=== PATIENT | male | born 1955 | race Caucasian/White ===

== ENCOUNTER 2023-08-23 10:14 | Observation (INO) | payer OTHER, MEDICARE ==
[2023-08-23 11:09] LABS: Absolute Lymphocytes (CBC) 1.2 K/uL (0.7-4.9); Hematocrit 42.5 % (39.6-49.0); Lymphocytes % 7.2 % (15.3-44.8); MCV 95.5 fL (80-100); MPV 7.5 fL (7.6-11.3); Platelets 179 thou/uL (152-406); RBC Red Blood Cell Count 4.45 M/uL (4.33-5.43)
[2023-08-23 11:25] LABS: SARS-CoV-2 Antigen Rapid Res Negative (Negative)
[2023-08-23 11:37] LABS: Potassium 4.1 mEq/L (3.5-5.1)
--- NOTE | 2023-08-23 12:09 | RAD REPORT ---
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 FINDINGS: Nasopharyngeal tissues are normal in appearance. Fossa Rosenmller are normal. 5.9 cm x 2.3 x 1.2 cm (CC x TV x AP) left peritonsillar abscess identified which extends inferiorly t o the C4 level via the left parapharyngeal space. There is shift of the airway from left to right. Th e epiglottis is thickened. Prevertebral edema is present. Tongue base structures are normal. Piriform sinuses are well aerated. The vocal cords are normal in appearance. Asymmetric enlargement of the left submandibular gland which could be due to edema. Upper lung miller are clear. Included intracranial contents are unremarkable. Carotid artery calcifications. IMPRESSION: Left-sided peritonsillar abscess which extends into the upper neck to about the level of C4. Mild prevertebral edema and edema/enlargement of the epiglottis. Mass effect is present on the a irway. Recommend ENT consultation .
[2023-08-23] MEDS ORDERED: NA CHLORIDE 0.9% 1,000 ML ONE (12:35)
[2023-08-23] MEDS ORDERED: PIPERACIL/TAZO 3.375 GM VIAL IV ONE (12:35)
[2023-08-23] MEDS ORDERED: NA CHLORIDE 0.9% 100 ML ONE (12:35)
[2023-08-23] MEDS ORDERED: dexAMETHasone 10 MG/ML VIAL ONE (12:48)
--- NOTE | 2023-08-23 12:53 | ER ---
Nurse's Notes [facility] Name: Delta Meredith Age: 67 yrs Sex: Male : 1955 Arrival Date: 08/23/2023 Time: 10:14 Bed 18 Private MD: Diagnosis: Peritonsillar abscess;Acute epiglottitis without obstruction Presentation: 08/23 10:29 Chief complaint: Patient states: Pt states "I started with a sore throat about 2 week aa5 ago and about 3 days ago it came back worse", pt states "my throat is swollen". 10:29 Method Of Arrival: Ambulatory aa5 10:29 Coronavirus screen: At this time, the client does not indicate any symptoms associated aa5 with coronavirus-19. Ebola Screen: Patient denies travel to an Ebola-affected area in the 21 days before illness onset. Initial Sepsis Screen: Does the patient meet any 2 criteria? HR > 90 bpm. Does the patient have a suspected source of infection? No. Patient's initial sepsis screen is negative. Risk Assessment: Do you want to hurt yourself or someone else? Patient reports no desire to harm self or others. Onset of symptoms was August 2023. 10:29 Acuity: LORETTA 3 aa5 Historical: - Allergies: 10:34 No Known Allergies; aa5 - Home Meds: 10:34 None [Active]; aa5 - PMHx: 10:34 None; aa5 - PSHx: 10:34 None; aa5 - Immunization history:: Adult Immunizations unknown. - Social history:: Smoking status: Patient denies any tobacco usage or history of. - Family history:: not pertinent. - Hospitalizations: : No recent hospitalization is reported. Screenin:30 [facility] ED Fall Risk Assessment (Adult) History of falling in the last 3 months, mb9 including since admission No falls in past 3 months (0 pts) Confusion or Disorientation No (0 pts) Intoxicated or Sedated No (0 pts) Impaired Gait No (0 pts) Mobility Assist Device Used No (0 pt) Altered Elimination No (0 pt) Score/Fall Risk Level 0 - 2 = Low Risk Oriented to surroundings, Maintained a safe environment, Educated pt \\T\\ family on fall prevention, incl call for assistance when getting out of bed. Abuse screen: Denies threats or abuse. Nutritional screening: No deficits noted. Tuberculosis screening: No symptoms or risk factors identified. Assessment: 11:10 General: Appears in no apparent distress. Behavior is calm. Pain: Complains of pain in mb9 neck. Neuro: Godoy Agitation-Sedation Scale (RASS): 0 - Alert and Calm Level of Consciousness is awake, alert, obeys commands, Oriented to person, place, time, situation, Appropriate for age. Cardiovascular: Patient's skin is warm and dry. Respiratory: Airway is patent Respiratory effort is even, unlabored, Respiratory pattern is regular, symmetrical, Breath sounds are clear bilaterally. GI: No signs and/or symptoms were reported involving the gastrointestinal system. : No signs and/or symptoms were reported regarding the genitourinary system. EENT: Throat is reddened. Derm: Skin is pink, warm \\T\\ dry. Musculoskeletal: Range of motion: intact in all extremities. 12:35 Reassessment: No changes from previously documented assessment. Patient and/or family mb9 updated on plan of care and expected duration. Pain level reassessed. Patient is alert, oriented x 3, equal unlabored respirations, skin warm/dry/pink. 14:00 Reassessment: No changes from previously documented assessment. Patient and/or family mb9 updated on plan of care and expected duration. Pain level reassessed. Patient is alert, oriented x 3, equal unlabored respirations, skin warm/dry/pink. 14:24 Reassessment: see [facility] for further charting. mb9 Vital Signs: 10:29 BP 124 / 88; Pulse 103; Resp 18 S; Temp 98.8(O); Pulse Ox 99% on R/A; Weight 100.7 kg aa5 (R); Height 6 ft. 1 in. (R); 12:46 BP 121 / 75; Pulse 95; Resp 16; Pulse Ox 100% ; mb9 14:00 BP 124 / 74; Pulse 90; Resp 16; Pulse Ox 97% on R/A; mb9 10:29 Body Mass Index 29.29 (100.70 kg, 185.42 cm) aa5 ED Course: 10:17 Patient arrived in ED. mg5 10:21 Macarena Coles, MADELAINE is Primary Nurse. lg3 10:21 Alonso Renteria MD is Attending Physician. rn 10:29 Arm band placed on. aa5 10:30 Triage completed. aa5 11:01 Primary Nurse role handed off by Macarena Coles RN mb9 11:01 Emelia Byrne, RN is Primary Nurse. mb9 11:01 Basic Metabolic Panel Sent. mb9 11:01 CBC with Diff Sent. mb9 11:01 Flu Sent. mb9 11:01 SARS RAPID Sent. mb9 11:01 Strep Sent. mb9 11:01 Inserted saline lock: 20 gauge in right antecubital area, using aseptic technique. mb9 Blood collected. 11:30 Placed in gown. Bed in low position. Call light in reach. Side rails up X 1. Client mb9 placed on continuous cardiac and pulse oximetry monitoring. NIBP monitoring applied. 11:55 CT Soft Tissue Neck W/contr In Process Unspecified. EDMS 12:46 Inserted saline lock: 20 gauge in right hand, using aseptic technique. mb9 12:46 No provider procedures requiring assistance completed. mb9 12:51 Delta Wade is Hospitalizing Provider. rn 14:25 Patient admitted, IV remains in place. mb9 Administered Medications: 12:45 Drug: Piperacillin-Tazobactam IVPB 3.375 grams IVPB once over 60 mins; (mix in NS 100 mb9 mL) Route: IVPB; Infused Over: 60 mins; Site: right hand; 14:25 Follow up: Response: No adverse reaction; IV Status: Completed infusion mb9 12:52 Drug: Decadron - Dexamethasone IVP 10 mg IVP once Route: IVP; Site: right antecubital; mb9 14:25 Follow up: Response: No adverse reaction mb9 Medication: 11:30 VIS not applicable for this client. mb9 Outcome: 12:52 Decision to Hospitalize by Provider. rn 15:31 Admitted to Med/surg accompanied by debbei, via wheelchair, room 231, with chart, Report mb9 called to MADELAINE Belle 15:31 Condition: stable 15:36 Patient left the ED. mb9 Signatures: Dispatcher [employer] EDMS Alonso Renteria MD MD rn Calderon, Audri, RN RN aa5 Macarena Coles RN RN lg3 Emelia Byrne, RN RN mb9 Marycruz Dunn mg5 Corrections: (The following items were deleted from the chart) 10:34 10:29 Chief complaint: Patient states: sore throat x 3 days ago, pt states "my throat aa5 is swollen" aa5
--- NOTE | 2023-08-23 12:53 | EDPHYS ---
Physician Documentation [facility] Name: Delta Meredith Age: 67 yrs Sex: Male : 1955 Arrival Date: 08/23/2023 Time: 10:14 Bed 18 Private MD: ED Physician Alonso Renteria HPI: 08/23 11:20 This 67 yrs old Male presents to ER via Ambulatory with complaints of Sore Throat - rn Swelling. 11:20 The patient presents with sore throat. The patient describes throat pain as raw, rn swollen. Onset: The symptoms/episode began/occurred 3 day(s) ago. Severity of symptoms: At their worst the symptoms were mild, in the emergency department the symptoms are unchanged. Modifying factors: The symptoms are alleviated by nothing, the symptoms are aggravated by swallowing, Patient's oral intake status: good. Associated signs and symptoms: Pertinent positives: fever, Pertinent negatives rhinorrhea, shortness of breath. The patient has not experienced similar symptoms in the past. The patient has not recently seen a physician. Pt reports sore throat, hurts to swallow, + subjective fever. NO sob. No rash or allergic symptoms. . Historical: - Allergies: 10:34 No Known Allergies; aa5 - Home Meds: 10:34 None [Active]; aa5 - PMHx: 10:34 None; aa5 - PSHx: 10:34 None; aa5 - Immunization history:: Adult Immunizations unknown. - Social history:: Smoking status: Patient denies any tobacco usage or history of. - Family history:: not pertinent. - Hospitalizations: : No recent hospitalization is reported. ROS: 11:20 Constitutional: + subjective fever Eyes: Negative for injury, pain, redness, and barn hand, ENT: + sore throat Neck: Negative for injury, pain, and swelling, Cardiovascular: Negative for chest pain, palpitations, and edema, Respiratory: Negative for shortness of breath, cough, wheezing, and pleuritic chest pain, Abdomen/GI: Negative for abdominal pain, nausea, vomiting, diarrhea, and constipation, Neuro: Negative for headache, weakness, numbness, tingling, and seizure, Exam: 11:20 Constitutional: This is a well developed, well nourished patient who is awake, alert, rn and in no acute distress. ENT: NO stridor, + mild prominence of left soft palate/peritonsillar region Neck: Trachea midline, no thyromegaly or masses palpated, and no cervical lymphadenopathy. Supple, full range of motion without nuchal rigidity, or vertebral point tenderness. No Meningismus. Cardiovascular: Tachycardic, regular. No pulse deficits. Respiratory: No increased work of breathing, no retractions or nasal flaring. 13:49 ECG was reviewed by the Attending Physician. rn Vital Signs: 10:29 BP 124 / 88; Pulse 103; Resp 18 S; Temp 98.8(O); Pulse Ox 99% on R/A; Weight 100.7 kg aa5 (R); Height 6 ft. 1 in. (R); 12:46 BP 121 / 75; Pulse 95; Resp 16; Pulse Ox 100% ; mb9 14:00 BP 124 / 74; Pulse 90; Resp 16; Pulse Ox 97% on R/A; mb9 10:29 Body Mass Index 29.29 (100.70 kg, 185.42 cm) aa5 MDM: 10:21 Patient medically screened. rn 12:23 ED course: CT shows peritonsillar abscess with posterior and inferior extension, rn possible involvement of the epiglottis and some airway involvement. Patient denies any difficulty breathing, no stridor. Antibiotics and steroids added. Paging Dr. Pascal for ENT.. 12:48 Differential diagnosis: peritonsillar abscess pharyngitis, retropharyngeal abcess rn tonsillitis. Data reviewed: vital signs, nurses notes, lab test result(s), radiologic studies, CT scan, and as a result, I will admit patient. Consideration of Admission/Observation Patient was admitted/placed on observation. Escalation of care including admission/observation considered. Management of patient was discussed with the following: Anodic Treater: Consulted and discussed case with Dr. Pascal, will admit to hospitalist service with IV antibiotics and steroids and she will evaluate patient.. Counseling: I had a detailed discussion with the patient and/or guardian regarding the historical points, exam findings, and any diagnostic results supporting the discharge/admit diagnosis, lab results, radiology results, the need for further work-up and treatment in the hospital. Response to treatment: the patient's symptoms have mildly improved after treatment. 08/23 10:37 Order name: Strep rn 08/23 10:37 Order name: SARS RAPID; Complete Time: 12:16 rn 08/23 10:37 Order name: Flu; Complete Time: 12:16 rn 08/23 10:37 Order name: CBC with Diff; Complete Time: 12:16 rn 08/23 10:37 Order name: Basic Metabolic Panel; Complete Time: 12:16 rn 08/23 11:19 Order name: Throat Culture EDMS 08/23 12:17 Order name: Blood Culture Adult (2) rn 08/23 12:17 Order name: CMP rn 08/23 12:17 Order name: Lactate w/ 2H reflex if indic. rn 08/23 12:17 Order name: Protime (+inr) rn 08/23 12:17 Order name: Ptt, Activated rn 08/23 14:00 Order name: Basic Metabolic Panel EDMS 08/23 14:00 Order name: Basic Metabolic Panel EDMS 08/23 14:00 Order name: Basic Metabolic Panel EDMS 08/23 14:00 Order name: Basic Metabolic Panel EDMS 08/23 14:00 Order name: Basic Metabolic Panel EDMS 08/23 14:00 Order name: Basic Metabolic Panel EDMS 08/23 14:00 Order name: CBC with Automated Diff EDMS 08/23 14:00 Order name: CBC with Automated Diff EDMS 08/23 14:00 Order name: CBC with Automated Diff EDMS 08/23 14:00 Order name: CBC with Automated Diff EDMS 08/23 14:00 Order name: CBC with Automated Diff EDMS 08/23 14:00 Order name: CBC with Automated Diff EDMS 08/23 14:00 Order name: Magnesium EDMS 08/23 14:00 Order name: Magnesium EDMS 08/23 14:00 Order name: Magnesium EDMS 08/23 14:00 Order name: Magnesium EDMS 08/23 14:01 Order name: Magnesium EDMS 08/23 14:01 Order name: Magnesium EDMS 08/23 14:01 Order name: Phosphorus EDMS 08/23 14:01 Order name: Phosphorus EDMS 08/23 14:01 Order name: Phosphorus EDMS 08/23 14:01 Order name: Phosphorus EDMS 08/23 14:01 Order name: Phosphorus EDMS 08/23 14:01 Order name: Phosphorus EDMS 08/23 10:37 Order name: CT Soft Tissue Neck W/contr; Complete Time: 12:16 rn 08/23 12:17 Order name: EKG; Complete Time: 12:19 rn 08/23 14:00 Order name: CONS Physician Consult EDMS 08/23 10:37 Order name: IV Start; Complete Time: 11:01 rn 08/23 12:17 Order name: Accucheck; Complete Time: 12:20 rn 08/23 12:17 Order name: Cardiac monitoring; Complete Time: 12:20 rn 08/23 12:17 Order name: EKG - Nurse/Tech; Complete Time: 12:45 rn 08/23 12:17 Order name: IV Saline Lock - Large Bore; Complete Time: 12:20 rn 08/23 12:17 Order name: Labs collected and sent; Complete Time: 12:20 rn 08/23 12:17 Order name: O2 Per Protocol; Complete Time: 12:20 rn 08/23 12:17 Order name: O2 Sat Monitoring; Complete Time: 12:20 rn 08/23 12:17 Order name: Vital Signs; Complete Time: 12:20 rn 08/23 12:18 Order name: NPO; Complete Time: 12:20 rn EC:49 Rate is 91 beats/min. Rhythm is regular. QRS [place] is Normal. CT interval is normal. QRS rn interval is normal. QT interval is normal. No Q waves. T waves are Normal. No ST changes noted. Clinical impression: Normal ECG. Interpreted by me. Reviewed by me. Administered Medications: 12:45 Drug: Piperacillin-Tazobactam IVPB 3.375 grams IVPB once over 60 mins; (mix in NS 100 mb9 mL) Route: IVPB; Infused Over: 60 mins; Site: right hand; 14:25 Follow up: Response: No adverse reaction; IV Status: Completed infusion mb9 12:52 Drug: Decadron - Dexamethasone IVP 10 mg IVP once Route: IVP; Site: right antecubital; mb9 14:25 Follow up: Response: No adverse reaction mb9 Disposition Summary: 08/23/23 12:52 Hospitalization Ordered Notes: Hospitalization Status: Inpatient Admission rn Provider: Delta Wade rn Condition: Stable rn Problem: new rn Symptoms: have improved rn Bed/Room Type: Standard rn Location: Telemetry/MedSurg (Inpatient)(08/23/23 15:21) ds4 Room Assignment: 231(08/23/23 15:21) ds4 Diagnosis - Peritonsillar abscess rn - Acute epiglottitis without obstruction rn Forms: - Medication Reconciliation Form rn - SBAR form rn - Leadership Thank You Letter rn Signatures: Dispatcher [employer] Alonso Silva MD MD rn Calderon, Audri RN RN aa5 Freddie Chew ds4 Iliana Mario RN RN kb3 Emelia Byrne RN RN mb9 Corrections: (The following items were deleted from the chart) 14:30 12:52 Telemetry/MedSurg (Inpatient) rn kb3 14:30 12:52 rn kb3 15:21 14:30 [facility] ER HOLD kb3 ds4 15:21 14:30 ERHOLD- kb3 ds4
[2023-08-23 13:19] LABS: Protime INR 1.12
[2023-08-23 14:23] VITALS: BMI 27.8
[2023-08-23] MEDS ORDERED: ENOXAPARIN 40 MG/0.4 ML SQ ONE (14:29)
[2023-08-23] MEDS: ENOXAPARIN 40 MG/0.4 ML SQ SCH (14:35)
[2023-08-23] MEDS: dexAMETHasone 10 MG/ML VIAL IV ONE (16:59)
[2023-08-23] MEDS ORDERED: PIPER TAZO 3.375 GM in NA CHLORIDE 0.9% 100 ML IV SCH (17:00)
[2023-08-23] MEDS ORDERED: MORPHINE 2 MG/ML SYR IV PRN (17:31)
--- NOTE | 2023-08-23 18:14 | P.HP ---
Certification for Inpatient Patient admitted to: Observation With expected LOS: >2 Midnights Practitioner: I am a practitioner with admitting privileges, knowledge of patient current condition, hospital course, and medical plan of care. Services: Services provided to patient in accordance with Admission requirements found in Title 42 Section 412.3 of the Code of Federal Regulations Patient History Date of Service: 08/23/23 Reason for admission: peritonsillar abscess History of Present Illness: Delta Meredith is a 67-year-old male with no significant past medical history who presents to the ED with complaints of trouble swallowing. This is going on for 3 weeks and has become worse in the last day. He states his has been sick and he has not felt well either and determined that was the cause of his throat swelling. When he has not been able to eat since Sunday and this has been causing insomnia. At time of evaluation, throat is swollen, he is able to speak but cannot swallow, Decadron has helped him feel better. Strep test is negative, blood cultures drawn, afebrile, zosyn, and decadron given in the ED. He does not see a doctor on a regular basis. Dr. Pascal was consulted and agrees with admission. Initial vitals BP 124 / 88; Pulse 103; Resp 18 S; Temp 98.8(O); Pulse Ox 99% on R/A. Laboratory evaluation WBC 17.2, BUN/creatinine 27/1.27, GFR 61, lactic acid 1.0, serum glucose [address] with contrast reads "Left-sided peritonsillar abscess which extends into the upper neck to about the level of C4. Mild prevertebral edema and edema/enlargement of the epiglottis. Mass effect is present on the airway. Recommend ENT consultation ." Delta will be admitted to hospitalist service for further evaluation and treatment of peritonsillar abscess. Allergies No Known Allergies Allergy (Unverified 08/23/23 14:23) Home Medications: NK [No Home Meds] 08/23/23 - Past Medical/Surgical History Has patient received pneumonia vaccine in the past: Yes Past Medical History: Patient denies medical history -: right knee - Family History Family History: Reviewed- Non-Contributory - Social History Smoking Status: Never smoker Alcohol use: No CD- Drugs: No Caffeine use: Yes Review of Systems General: Fever ENT: Throat Pain, Throat Swelling Physical Examination - Vital Signs Temperature: 98.4 F Blood Pressure: 146/91 Pulse: 93 Respirations: 18 Pulse Ox (%): 98 - Physical Exam General: Alert, Oriented x3, Acute distress HEENT: Atraumatic, Normocephalic, PERRLA Neck: 2+ carotid pulse no bruit, Other (swollen neck) Respiratory: Clear to auscultation bilaterally, Normal air movement Cardiovascular: Normal pulses, Regular rate/rhythm, Normal S1 S2 Capillary refill: <2 Seconds Gastrointestinal: Normal bowel sounds, Soft and benign Musculoskeletal: No clubbing, No swelling, No contractures Integumentary: No rashes, No breakdown, No significant lesion, No tenderness/swelling Neurological: Normal speech, Normal strength at 5/5 x4 extr - Studies Laboratory Data (last 24 hrs) 08/23/23 08/23/23 08/23/23 13:05 10:57 10:57 WBC 17.20 H Hgb 15.0 Hct 42.5 Plt Count 179 PT 12.3 INR 1.12 APTT 30.4 Sodium 131 L Potassium 4.1 BUN 27 H Creatinine 1.27 Glucose 123 H Microbiology Data (last 24 hrs): 08/23/23 10:57 Nasopharnyx Influenza Type A Antigen Screen - Final 08/23/23 10:57 Nasopharnyx Influenza Type B Antigen Screen - Final 08/23/23 10:57 Throat Group A Streptococcus Rapid Screen - Final Assessment and Plan - Plan Assessment and Plan Peritonsillar abscess likely involving the epiglottis Leukocytosis -Soft neck tissue CT with contrast reads "Left-sided peritonsillar abscess which extends into the upper neck to about the level of C4. Mild prevertebral edema - and edema/enlargement of the epiglottis. Mass effect is present on the airway. Recommend ENT consultation ." -WBC 17.2, LA 1.0 -Decadron -zosyn -Tylenol for fever -morphine for pain -Dr. Pascal consulted -NPO at midnight -CLD with caution -Aspiration precaution SAIRA -BUN/creatinine 27/1.27, GFR 61 -Monitor in AM labs Mild Hyponatremia -Na 131 -IVF given in the ED -monitor in AM labs DVT ppx Full code LOS 2-3 days Discharge Plan: Home Plan to discharge in: 48 Hours - Advance Directives Does patient have a Living Will: Yes Does patient have a Durable POA for Healthcare: No
[2023-08-23] MEDS: MAGIC MOUTHWASH 180 ML BTL PO PRN (18:22)
[2023-08-24] MEDS ORDERED: PIPER TAZO 3.375 GM in NA CHLORIDE 0.9% 100 ML IV SCH (01:00)
[2023-08-24 07:35] LABS: Hematocrit 44.9 % (39.6-49.0); Lymphocytes % 6.9 % (15.3-44.8); MCV 96.3 fL (80-100); MPV 8.3 fL (7.6-11.3); Platelets 229 thou/uL (152-406); RBC Red Blood Cell Count 4.66 M/uL (4.33-5.43)
[2023-08-24 07:49] LABS: Albumin 2.9 g/dL (3.4-5.0); Bilirubin Total 0.4 mg/dL (0.2-1.0); Magnesium 3.1 mg/dL (1.6-2.4); Phosphorus 2.4 mg/dL (2.5-4.9); Protein, Total 8.8 g/dL (6.4-8.2)
[2023-08-24] MEDS ORDERED: LIDOCAINE HCL/EPINEPHRINE 20 ML MDV ONE (10:11)
[2023-08-24] MEDS ORDERED: EPINEPHRINE 1 MG/ML VIAL ONE ×2 (10:11→10:45)
[2023-08-24] MEDS: Ringers Lactate 1,000 ML IV ONE (11:05)
--- NOTE | 2023-08-24 11:08 | CON ---
Date of Consultation: 08/23/2023 Chief Complaint: Severe sore throat and difficulty swallowing. History Of Present Illness: Patient presents with at least a 2-week history of worsening sore throat. He stated to the emergency department that occurred 3 days ago, but after I spoke with him, he did say that it actually happened at least 2 weeks ago, whereby he was at a family event and he was around sick family members and he developed a mild sore throat and it worsened until 08/23. He presented to the emergency department with worsened swallowing and inability to tolerate his own secretions. He denied shortness of breath, rhinorrhea, airway compression. However, he did does report low-grade fever. No other ENT complaints today. Past Medical History: None. Past Surgical History: None. Home Medications: Multivitamins. Allergies: NO KNOWN DRUG ALLERGIES. Psychosocial History: The patient denies any tobacco and he drinks approximately 2 drinks per day, but denies illicit drug use. The patient lives at home. He is not depressed or anxious. Review of Systems: Constitutional: Positive for subjective fever. Eyes: Negative for injury, pain, redness, and discharge. Ears, nose, and throat: Positive for sore throat and difficulty swallowing. Neck: Negative for injury, pain, or swelling. Physical Examination: Vital Signs: Stable. Patient is awake, alert, oriented to person, place, and time. General: He is in no acute distress. Ears: Deferred. Nose: Moist intranasal mucosa. Midline septum. Throat: No audible stridor and there is mild to moderate prominence of the left soft palate and peritonsillar region. Trachea: Appears midline. No thyromegaly or lymphadenopathy palpated. Oral cavity: He was able to distract his jaw at least 2 cm. Laboratory Data: Demonstrates a predominantly neutrophil count greater than 80 and white blood cell count 17+. CT scan of the soft tissue neck was performed and it demonstrated a 5.9 x 2.3 x 1.2 cm left parapharyngeal space abscess extending to the left peritonsillar space with some shifting of the trachea, although looking at the full image, coronal and axials demonstrates a widely patent airway. There is evidence of inflammation of the epiglottis. The tonsillar tissue looks inflamed. Cannot rule out a neoplasm. Diagnoses: Left parapharyngeal abscess/cellulitis extending to the left peritonsillar area; patient is stable and he reports improvement with Decadron and Zosyn, which was started in the emergency room. Recommendations: 1. Plan is to place him n.p.o. after midnight and we will take him to the operating room for definitive drainage. 2. Possible biopsies of the left tonsil if that appears abnormal on exam under sedation. Thank you for this most interesting consult. SANTI Voice ID: [id number] Report ID: [id number] MTDD
[2023-08-24] MEDS: PIPER TAZO 3.375 GM in NA CHLORIDE 0.9% 100 ML IV SCH (11:19)
[2023-08-24] MEDS ORDERED: propofoL 200 MG/20 ML VIAL IV ONE (11:50)
[2023-08-24] MEDS ORDERED: ROCURONIUM 50 MG/5 ML VIAL IV ONE (11:50)
[2023-08-24] MEDS ORDERED: MIDAZOLAM HCL 2 MG/2 ML INJ ONE (11:50)
[2023-08-24] MEDS ORDERED: FENTANYL CITR 100 MCG/2 ML ONE (11:50)
[2023-08-24] MEDS ORDERED: LIDOCAINE 2% MPF 5 ML VIAL ONE (11:50)
[2023-08-24] MEDS ORDERED: ONDANSETRON 4 MG/2 ML VIAL ONE (11:50)
[2023-08-24] MEDS: BUPIVACAINE 0.25% PF 10 ML VIAL ONE (12:24)
[2023-08-24] MEDS ORDERED: NEOSTIGMINE 1 MG/ML -10 ML VIAL ONE ×2 (12:30)
[2023-08-24] MEDS ORDERED: GLYCOPYRROLATE 0.2 MG/ML SYR ONE (12:30)
[2023-08-24 12:33] LABS: Blood Morphology Comment NOT SEEN (NOT SEEN); Platelet Estimate ADEQ; White Blood Cell Scan OK (OK)
[2023-08-24 13:40] VITALS: BP 138/52; TEMP 97; O2SAT 96
[2023-08-24] MEDS: ACETAMINOPHEN 160 MG/5 ML UCUP PO PRN (16:12)
--- NOTE | 2023-08-24 17:45 | P.DS ---
Admission Date: 08/23/23 Discharge Date: 08/24/23 Disposition: ROUTINE DISCHARGE Discharge Condition: FAIR Reason for Admission: peritonsillar abscess - Problems (1) Peritonsillar abscess Current Visit: Yes Status: Acute (2) Sepsis Current Visit: Yes Status: Acute Brief History of Present Illness: Delta Meredith is a 67-year-old male with no significant past medical history who presented to the ED with complaints of trouble swallowing. This was going on for 3 weeks and became worse. He states his has been sick and he has not felt well either and determined that was the cause of his throat swelling. At time of evaluation, throat was swollen, he was able to speak but could not swallow. Decadron helped him feel better. Strep test is negative, blood cultures drawn, zosyn, and decadron given in the ED. ENT Dr. Pascal was consulted and agreed with admission. Initial vitals BP 124 / 88; Pulse 103; Resp 18 S; Temp 98.8(O); Pulse Ox 99% on R/A. Laboratory evaluation WBC 17.2, BUN/creatinine 27/1.27, GFR 61, lactic acid 1.0, serum glucose [address] with contrast reads "Left-sided peritonsillar abscess which extends into the upper neck to about the level of C4. Mild prevertebral edema and edema/enlargement of the epiglottis. Mass effect is present on the airway. Patient was admitted for further management. Hospital Course: Patient was placed on observation on the medical floor, treated with IV Zosyn, given a dose of dexamethasone, Magic mouthwash and other supportive measures with analgesics as needed. Patient was seen and evaluated by ENT Dr. Pascal who examined him under anesthesia and performed I&D of the peritonsillar abscess. Patient deemed stable for discharge per Dr. Pascal. Patient has been able to drink liquids. He is prescribed clindamycin, prednisone, [place] and Magic mouthwash. He is informed to follow with Dr. Pascal within 2 weeks. Vital Signs/Physical Exam: Temp Pulse Resp BP Pulse Ox 97 F 88 19 138/52 L 95 08/24/23 13:10 08/24/23 13:10 08/24/23 13:10 08/24/23 13:10 08/24/23 08:00 General: Alert, In no apparent distress HEENT: Mucous membr. moist/pink Neck: JVD not distended Respiratory: Clear to auscultation bilaterally, Normal air movement Cardiovascular: No edema, Regular rate/rhythm, Normal S1 S2 Gastrointestinal: Soft and benign, Non-distended, No tenderness Musculoskeletal: No swelling Integumentary: No rashes Neurological: Normal strength at 5/5 x4 extr Laboratory Data at Discharge: WBC 14.70 thou/uL (4.3-10.9) H 08/24/23 06:43 Hgb 15.5 g/dL (13.6-17.9) 08/24/23 06:43 Hct 44.9 % (39.6-49.0) 08/24/23 06:43 Plt Count 229 thou/uL (152-406) D 08/24/23 06:43 PT 12.3 SECONDS (9.5-12.5) 08/23/23 13:05 INR 1.12 08/23/23 13:05 APTT 30.4 SECONDS (24.3-36.9) 08/23/23 13:05 Sodium 137 mEq/L (136-145) D 08/24/23 06:43 Potassium 4.0 mEq/L (3.5-5.1) 08/24/23 06:43 BUN 37 mg/dL (7-18) H 08/24/23 06:43 Creatinine 1.19 mg/dL (0.70-1.30) 08/24/23 06:43 Glucose 162 mg/dL (74-106) H 08/24/23 06:43 Phosphorus 2.4 mg/dL (2.5-4.9) L 08/24/23 06:43 Magnesium 3.1 mg/dL (1.6-2.4) H 08/24/23 06:43 Total Bilirubin 0.4 mg/dL (0.2-1.0) 08/24/23 06:43 AST 24 U/L (15-37) 08/24/23 06:43 ALT 35 U/L (16-61) 08/24/23 06:43 Alkaline Phosphatase 106 U/L (45-117) 08/24/23 06:43 Home Medications: Hydrocodone 10/APAP 325 [[place] 10/325] 1 tab PO Q6H PRN #15 tab 08/24/23 Magic Mouthwash [Magic Mouthwash*] 15 ml PO QID PRN #1 bottle 08/24/23 New Medications: Magic Mouthwash [Magic Mouthwash*] 15 ml PO QID PRN #1 bottle PRN Reason: Sore Throat Hydrocodone 10/APAP 325 [[place] 10/325] 1 tab PO Q6H PRN #15 tab PRN Reason: Pain Physician Discharge Instructions: Diet: Clear liquid for 1 day, advance to full liquid diet for another day, and then soft diet as tolerated. Followup: Bruna Pascal, [ACTIVE - CAN ADMIT] - (call for an apointment for 2 weeks. If you have any questions or concern cantact the DR.) Time spent managing pt's care (in minutes): 27
--- NOTE | 2023-08-27 11:27 | OP ---
Date of Procedure: 08/24/2023 Surgeon: JACKY KRISHNA Preoperative Diagnoses: 1.Acute left peritonsillar abscess. 2.Acute pharyngitis. 3.Neoplasm, left tonsil, uncertain behavior. Postoperative Diagnoses: 1.Acute left peritonsillar abscess. 2.Acute pharyngitis. 3.Neoplasm, left tonsil, uncertain behavior. Operations: 1.Flexible nasopharyngolaryngoscopy. 2.Left tonsil biopsy. 3.Incision and drainage of left peritonsillar abscess. Anesthesia: General endotracheal anesthesia was administered. I also infiltrated approximately 10 m L of 0.25% Marcaine without epinephrine into the left soft palate and area of incision. Specimens: 1.Specimens obtained from left peritonsillar abscess and sent to microbiology for evaluation. 2.Left superior tonsil specimen was submitted to pathology for evaluation. Estimated Blood Loss: Less than 2 mL. Findings: Left peritonsillar fluctuance and swelling with mild rightward uvular deviation. Examinat ion of the hypopharynx, larynx, and vallecular base of tongue and epiglottis revealed mild swelling, but patent airway and no evidence of airway obstruction; residual superior pole tonsil tissue, most l ikely benign. Complications: None. Disposition: Stable. The patient tolerated the procedure well. Indications For Procedure: The patient is a pleasant 67-year-old male, who presented acutely to the emergency room and subsequently admitted for left peritonsillar and parapharyngeal cellulitis and abs cess. Upon examination, the patient had stated that he had his tonsils removed in the past, but he s till had a residual tonsil tissue located in the left superior pole. While it appeared benign, I fel t that biopsies were needed. Examination of the airway revealed mild edema, but no obstruction. Vania s, these were indications to bring the patient to operative suite for the above-mentioned procedure. He understood, all questions were answered. Risks versus benefits, complications were explained in detail and a consent form was signed, which was placed in the chart. Description Of Procedure: The patient was transferred from the preoperative holding area to the oper ative suite by Department of Anesthesia and placed on the operating table supine, sedated and intubat ed in normal fashion. I did perform flexible nasopharyngolaryngoscope before the patient was intubat ed and the patient had a widely patent airway with no evidence of airway obstruction. He had mild ed delisa of the epiglottis and pharynx. The scope was withdrawn. Table was rotated 90 degrees and a shou lder roll was placed. Head and eyes were covered with sterile blue towels and a moist Ray-Jose J was pl aced over the upper lip for protection. The McIvor retractor was introduced into the right oral comm issure and directed along the endotracheal tube and suspended from the [place] stand. I took 2 left ton beto biopsies with needlepoint electrocautery on a setting of 20 for coagulation. These were handed o ff the field and sent to pathology in formalin. I then located the abscess pocket with an 18-gauge n eedle, and I was able to withdraw approximately 5 cc of mucopurulent fluid. I then made a wider inci jacquelin over the area, where the needle was injected and opened up the abscess pocket and suctioned out mucopurulent secretions from the abscess pocket. The cavity was irrigated and then hemostasis was ac hieved with suction Bovie cautery on a setting of 20 for coagulation. I injected approximately 10 mL of 0.25% Marcaine without epinephrine around the incision site and left soft palate. He tolerated t he procedure well. Head and eyes were covered and sterile towels were removed. He was de-suspended from the [place] stand. The McIvor retractor was removed. He was transferred back to Department of Ane sthesia in stable condition and will be subsequently discharged home on antibiotic and analgesic medication and will follow up in 1 to 2 weeks or sooner if needed. DARYL/CALLI Voice ID: [id number] Report ID: [id number]
--- NOTE | 2023-08-27 13:50 | EKG ---
Test Date: 2023-08-23 Test Time: 12:40:38 Telephone Sterilizer: MB MEASUREMENT RESULTS: Intervals: Rate: 91 [place]: 136 QRSD: 76 QT: 358 QTc: 440 [employer]: P: 74 [place]: 136 QRS: 64 T: 42 INTERPRETIVE STATEMENTS: Normal sinus rhythm Normal ECG No previous ECG available for comparison Electronically Signed On 08-27-23 13:37:15 RESOURCE MANAGER by Anderson Beavers
== END 2023-08-24 18:19 | disposition home or self-care (01) ==
LOC: ER 10:14 → ERHOLD 13:52 → 2ND 15:26
PROVIDERS: ADMIT Internal Medicine; ATTEND Internal Medicine
PROC: 0CJS8ZZ Inspection of Larynx, Via Natural or Artificial Opening Endoscopic (ICD-10-PCS; 2023-08-24)
PROC: 0CBPXZX Excision of Tonsils, External Approach, Diagnostic (ICD-10-PCS; 2023-08-24)
PROC: 0C9PXZX Drainage of Tonsils, External Approach, Diagnostic (ICD-10-PCS; principal; 2023-08-24 11:00)
DX: J36 Peritonsillar abscess (principal); A41.9 Sepsis, unspecified organism; N17.9 Acute kidney failure, unspecified; E87.1 Hypo-osmolality and hyponatremia; J02.9 Acute pharyngitis, unspecified; Z11.52 Encounter for screening for COVID-19
CPT/HCPCS: 42700; 93005; 87040 ×2; 87070 ×2; 85025 ×2; 80048; 36415; 83735; 87205; 84100; 85610; 87081; 83605; 88305; 85730; 87075; 80053; 87804 ×2; 70491; 87811; 31575; 42800; Q9967; J2704; J2710 ×2; J2543 ×3; J2001; J1650; J3010; J1100 ×2; J0171; J2405; J7120; J7030; G0378 ×2; 88304; 96365; 96366; 96375; 99285; J2250